=== PATIENT | female | born 1940 | race Caucasian/White ===

== ENCOUNTER → 2020-05-04 13:51 | Outpatient (BNVA) | payer OTHER, SELFPAY | PROVIDERS: PCP Internal Medicine; Referring Provider Internal Medicine; Visit Provider Hospitalist | DX: Z76.89 Persons encountering health services in other specified circumstances (principal) ==

== ENCOUNTER → 2020-11-02 14:56 | Outpatient (BNVA) | payer OTHER, SELFPAY | PROVIDERS: PCP Internal Medicine; Visit Provider Hospitalist ==

== ENCOUNTER → 2021-11-03 14:16 | Outpatient (BNVA) | payer OTHER, SELFPAY | PROVIDERS: PCP Internal Medicine; Visit Provider Hospitalist | DX: R91.1 Solitary pulmonary nodule (principal) ==

== ENCOUNTER 2023-08-17 14:52 | Outpatient (AMB) | payer OTHER, SELFPAY ==
--- NOTE | 2023-08-17 15:03 | MHC.OFFVIS ---
Intake Vital Signs 08/17/23 15:06 Height 5 ft 6 in Weight 151 lb BMI 24.4 Pulse 73 Pulse Source Pulse Oximeter Pulse Oximetry (%) 96 Oxygen Delivery Method Room Air Intake Visit Reasons: COPD Machine Shop Worker Required: No Allergies tetracycline Allergy (Severe, Verified 08/17/23 15:07) Hives Vioxx Allergy (Severe, Uncoded 08/17/23 15:07) Hives HPI HPI Comments History of Present Illness Details The patient is a 83-year-old woman known COPD and pulmonary nodule. She has had a a lot right upper lobe subsolid nodular density now for many years. It appears to be subsolid with a ground-glass area around it and subsolid nodular Center area. Is changes correct risks some degree. She did see thoracic surgeon the past did recommend surgery. She was reluctant. She did get a 2nd opinion with another thoracic surgery who will perform a PET scan. The PET scan only showed mild activity in the right upper lobe nodular density. Therefore, would there following the nodular density closely. The patient is here for a pulmonary follow up visit. Overall doing well. Using her Advair with very good eefect. She had tried other inhalers in the past all ready. +dyspnea on exertion, mild in severity. She has a CT chest scheduled for August 2019. 05/04/2020 the patient overall is doing very well. She continues on the current respiratory regimen. She states that her cough is overall better. Still intermittent and mild. She recently had her knee replacement. She is able to walk and is healing very well. She still feels a little swelling and some warmth when she touches it. She is scheduled to undergo repeat CT scan in August 2020. I which point she will follow up with thoracic surgery. Otherwise the patient is without any other complaints. 11/03/2021 the patient is here for pulmonary follow-up visit. The patient has been doing well from a respiratory status. Still complaining of neck aching headaches and she had a CT scan of neck and brain. It was found to be abnormal with what appeared to be meningioma. In the meantime also dealing with kidney stones. In regards to her pulmonary nodule she did recently have a CT scan of the chest that [facility] on 08/2021. It appears that the subsolid nodular density has not changed. She did have an appointment with thoracic surgery and they are pleased. She will have a repeat CT chest in 1 year. Her asthma has been stable. She was able to cut down on the advair to daily. 08/17/2023 the patient is here for a pulmonary follow-up visit. The patient continues to do well. She did have a repeat CT scan sometime in the fall 2022 and was followed closely by thoracic surgery at [facility]. She does have the large looking ground-glass nodular density with a subsolid component. Based on her imaging studies and does not appear to have changed significantly which is reassuring. She understands that is not so much the size but the transformation of the solid component. At this point the patient has been using her respiratory therapy with good effect. Has not required any prednisone. Has not required her rescue inhaler. although, now the adverse no longer be made so therefore she needs to change medications. We did go over the options. At this point will try Wixela as the best option for her. She will try if she has any issues with it or the delivery device sometimes can be little difficulty use she can always call and we can look for other a lternatives. She is having worsening headaches. Primarily in the right side. It concerns her because of her history meningioma. She is going to call her specialist for that in order to further evaluate that area. [facility] Medical History (Updated 11/02/20 @ 15:25 by Favian Garcia MD) Meningioma Pulmonary nodule Asthma Family History (Updated 05/04/20 @ 22:05 by Favian Garcia MD) Father No problems noted. Social History (Updated 11/03/21 @ 14:31 by GURPREET Walker) Patient Tobacco Use Status: Former Tobacco user Tobacco use type: Cigarette Years Smoked: 20 years Review of Systems Const Reports headache(s) and Denies night sweats ENT Denies change in voice, Reports headache(s), Denies lip swelling, Denies mouth pain, Reports nasal congestion, Reports nasal discharge and Denies tongue swelling Card Denies chest pain Resp Reports cough GI Denies abdominal pain Musc Denies no additional complaints Neuro Denies Neuro-related abnormal movements and Reports headache(s) Psych Denies no additional complaints Blade/Lymph Denies easy bleeding and Denies lymphadenopathy Aller/Immun Denies lip swelling and Denies tongue swelling Physical Exam Vital Signs: Last Vital Signs Pulse 73 02/23/24 15:06 Pulse Ox 96 08/17/23 15:06 Oxygen Delivery Method Room Air 08/17/23 15:06 BMI result Body Mass Index 24.4 Const General: alert Neck Neck: Yes normal visual inspection, Yes full ROM and Yes no lymphadenopathy Chest Chest palpation & inspection: normal inspection of the chest Resp Auscultation: diminished lung sounds Cardio Rate: regular rate Rhythm: regular rhythm Heart sounds: S1 normal heart sound present, S2 normal heart sound present and Murmur heart sound present systolic III/, with radiation to the carotids and at the right sternal border GI Palpation (GI): Soft to palpation and nontender Auscultation: normal bowel sounds Skin General skin exam: rashes and/or lesions noted Assessment & Plan Assessment & Plan (1) Pulmonary nodule: Code(s): R91.1 - Solitary pulmonary nodule (2) Asthma: Code(s): J45.909 - Unspecified asthma, uncomplicated Qualifiers: Asthma complication type: uncomplicated Asthma persistence: persistent Asthma severity: moderate Qualified Code(s): J45.40 - Moderate persistent asthma, uncomplicated (3) Meningioma: Code(s): D32.9 - Benign neoplasm of meninges, unspecified Plan Repeat CT chest Fall 2023 at [facility] [place] stop Advair 250 start Wixela VIKAS as needed F/U 12 months Medications: New fluticasone propion-salmeterol 250-50 mcg/dose (Wixela Inhub) 1 inh inhalation Q12H 30 days 60 ea 11RF Coding Level of Care Code Est Pt Level 4 (34410) Diagnoses Pulmonary nodule R91.1 Moderate persistent asthma without complication J45.40 Asthma complication type: uncomplicated Asthma persistence: persistent Asthma severity: moderate Meningioma D32.9 Time Spent (min) 18
[2023-08-17 15:06] VITALS: PULSE 73; O2SAT 96; BMI 24.4
== END 2023-08-17 15:29 | disposition home or self-care (01) ==
PROVIDERS: PCP Internal Medicine; Visit Provider Hospitalist
DX: R91.1 Solitary pulmonary nodule (principal); J45.40 Moderate persistent asthma, uncomplicated; D32.9 Benign neoplasm of meninges, unspecified
CPT/HCPCS: 99214

== ENCOUNTER → 2023-08-17 14:52 | Outpatient (BNVA) | payer OTHER, SELFPAY | PROVIDERS: PCP Internal Medicine; Visit Provider Hospitalist ==

== ENCOUNTER 2024-01-15 15:03 | Outpatient (AMB) | payer OTHER, SELFPAY ==
[2024-01-15 15:08] VITALS: BP 128/60; PULSE 67; O2SAT 98; BMI 24.0
--- NOTE | 2024-01-15 15:08 | A.OFFVIS_ITS ---
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 She has had a a lot right upper lobe subsolid nodular density now for many years. It appears to be subsolid with a ground-glass area around it and subsolid nodular Center area. Is changes correct risks some degree. She did see thoracic surgeon the past did recommend surgery. She was reluctant. She did get a 2nd opinion with another thoracic surgery who will perform a PET scan. The PET scan only showed mild activity in the right upper lobe nodular density. Therefore, would there following the nodular density closely. The patient is here for a pulmonary follow up visit. Overall doing well. Using her Advair with very good eefect. She had tried other inhalers in the past all ready. +dyspnea on exertion, mild in severity. She has a CT chest scheduled for August 2019. 05/04/2020 the patient overall is doing very well. She continues on the current respiratory regimen. She states that her cough is overall better. Still intermittent and mild. She recently had her knee replacement. She is able to walk and is healing very well. She still feels a little swelling and some warmth when she touches it. She is scheduled to undergo repeat CT scan in August 2020. I which point she will follow up with thoracic surgery. Otherwise the patient is without any other complaints. 11/03/2021 the patient is here for pulmonary follow-up visit. The patient has been doing well from a respiratory status. Still complaining of neck aching headaches and she had a CT scan of neck and brain. It was found to be abnormal with what appeared to be meningioma. In the meantime also dealing with kidney stones. In regards to her pulmonary nodule she did recently have a CT scan of the chest that [facility] on 08/2021. It appears that the subsolid nodular density has not changed. She did have an appointment with thoracic surgery and they are pleased. She will have a repeat CT chest in 1 year. Her asthma has been stable. She was able to cut down on the advair to daily. 08/17/2023 the patient is here for a pulmonary follow-up visit. The patient continues to do well. She did have a repeat CT scan sometime in the fall 2022 and was followed closely by thoracic surgery at [facility]. She does have the large looking ground-glass nodular density with a subsolid component. Based on her imaging studies and does not appear to have changed significantly which is reassuring. She understands that is not so much the size but the transformation of the solid component. At this point the patient has been using her respiratory therapy with good effect. Has not required any prednisone. Has not required her rescue inhaler. although, now the adverse no longer be made so therefore she needs to change medications. We did go over the options. At this point will try Wixela as the best option for her. She will try if she has any issues with it or the delivery device sometimes can be little difficulty use she can always call and we can look for other a lternatives. She is having worsening headaches. Primarily in the right side. It concerns her because of her history meningioma. She is going to call her specialist for that in order to further evaluate that area. 01/15/2024 the patient is here for a pulmonary follow-up visit. The patient overall has been doing well. She had been doing very well on the Advair Diskus. However, then he got discontinued. We had tried her on Breo but she did not feel well on Breo and therefore we sent her Wixela. She seems to be doing better with the Wixela although she does not like the mouth opening and she has a hard time putting her mouth around the small opening. Although seems like it is working better than the Breo. She is wondering about other alternatives. We did talk about the respiclick device. Although her insurance is not covering the AirDuo this time. This is a medication that she can get with a good Rx card. Still be more expensive than her cost of the Wixela. Seems like the Wixela is working well her respiratory exam is completely normal so therefore will continue that for now. If she has a hard time we can always consider the AirDuo on a later time. As far as her pulmonary nodules she has a subsolid pulmonary nodule and will have a CT scan of the chest in 04/13/2024. She will follow-up with the thoracic surgeon at that point. At least clinically she is feeling well and denies any constitutional symptoms which is reassuring. The patient will follow-up with me in the 2024. If she has any worsening issues or her CT scans concerning she knows see me prior to that. [facility] Medical History (Updated 11/02/20 @ 15:25 by Favian Garcia MD) Meningioma Pulmonary nodule Asthma Family History (Updated 05/04/20 @ 22:05 by Favian Garcia MD) Father No problems noted. Social History (Updated 11/03/21 @ 14:31 by Beba Rashid [facility] Patient Tobacco Use Status: Former Tobacco user Tobacco use type: Cigarette Years Smoked: 20 years Review of Systems Const Denies headache(s) and Denies night sweats ENT Denies change in voice, Denies headache(s), Denies lip swelling, Denies mouth pain, Reports nasal congestion, Reports nasal discharge and Denies tongue swelling Card Denies chest pain Resp Reports cough GI Denies abdominal pain Musc Denies no additional complaints Neuro Denies Neuro-related abnormal movements and Denies headache(s) Psych Denies no additional complaints Blade/Lymph Denies easy bleeding and Denies lymphadenopathy Aller/Immun Denies lip swelling and Denies tongue swelling Physical Exam Vital Signs: Last Vital Signs Pulse 67 01/15/24 15:08 BP 128/60 01/15/24 15:08 Pulse Ox 98 01/15/24 15:08 Oxygen Delivery Method Room Air 01/15/24 15:08 BMI result Body Mass Index 24.0 Const General: alert Neck Neck: Yes normal visual inspection, Yes full ROM and Yes no lymphadenopathy Chest Chest palpation & inspection: normal inspection of the chest Resp Effort & Inspection: normal respiratory effort Auscultation: clear to auscultation bilaterally Cardio Rate: regular rate Rhythm: regular rhythm Heart sounds: S1 normal heart sound present, S2 normal heart sound present and Murmur heart sound present systolic III/, with radiation to the carotids and at the right sternal border GI Palpation (GI): Soft to palpation and nontender Auscultation: normal bowel sounds Skin General skin exam: rashes and/or lesions noted Assessment & Plan Assessment & Plan (1) Pulmonary nodule: Code(s): R91.1 - Solitary pulmonary nodule Category: Medical (2) Asthma: Code(s): J45.909 - Unspecified asthma, uncomplicated Category: Medical Qualifiers: Asthma complication type: uncomplicated Asthma persistence: persistent Asthma severity: moderate Qualified Code(s): J45.40 - Moderate persistent asthma, uncomplicated (3) Meningioma: Code(s): D32.9 - Benign neoplasm of meninges, unspecified Category: Medical Plan Repeat CT chest Fall 2023 at [facility] continue Wixela VIKAS as needed F/U 8-10 months Medications: New fluticasone propion-salmeterol 250-50 mcg/dose (Wixela Inhub) 1 inh inhalation Q12H 3 ea 3RF 90 days Coding Level of Care Code Est Pt Level 4 (22730) Diagnoses Pulmonary nodule R91.1 Moderate persistent asthma without complication J45.40 Asthma complication type: uncomplicated Asthma persistence: persistent Asthma severity: moderate Meningioma D32.9 Time Spent (min) 15
== END 2024-01-15 15:28 | disposition home or self-care (01) ==
PROVIDERS: PCP Internal Medicine; Visit Provider Hospitalist
DX: R91.1 Solitary pulmonary nodule (principal); J45.40 Moderate persistent asthma, uncomplicated; D32.9 Benign neoplasm of meninges, unspecified
CPT/HCPCS: 99214

== ENCOUNTER → 2024-01-15 15:03 | Outpatient (BNVA) | payer OTHER, SELFPAY | PROVIDERS: PCP Internal Medicine; Visit Provider Hospitalist ==

== ENCOUNTER 2025-04-28 14:24 | Outpatient (AMB) | payer OTHER, SELFPAY ==
--- OUTSIDE RECORDS SUMMARY | 2024-07-07 09:00 | XMS_ITS ---
Author Organization [facility] Address [address] [place] [address] Care Team Providers Care Car Pilot Name Role Phone Darcie Goncalves Primary Care Provider Unavailabl Jer Roy Unavailable [phone] REASON FOR VISIT Seen Sooner Encounters Encounter Location Date Provider Diagnosis [address] [address] 07/07/2024 Jer Buenrostro Plan Of Treatment Next Appt Details Provider Name:Jer Buenrostro , 09/10/2025 01:30:00 PM, [address] [place] [address], [phone], Progress Notes * Malgorzata MONTESDOB:[birth year] (84 yo F)Acc No.[id number]:07/07/2024 Progress Notes Patient: Malgorzata ROBIN Provider: Jacqui Buenrostro DPM :1940 A ge:84 Y S ex:Female Date:07/07/2024 Address:[address] [place] [address] Pcp:Darcie Goncalves Subjective: * Chief Complaints: * 1 . Seen Sooner. * Medical History: Objective: * Vitals: Assessment: Plan: * Treatment: * Images: * The named appointment provid er may or may not be the originator of this progress note, and it is not deemed complete until electronically signed by the appointment provider. Sign off status: Pending * Provider: Jacqui Buenrostro DPM Date: 0 07/07/2024 Generated for Cliff castillo/Ethan on: 06/28/2024 05:27 PM EST
--- OUTSIDE RECORDS SUMMARY | 2024-07-09 08:30 | XMS_ITS ---
Author Organization [facility] Address [address] [place] [address] Care Team Providers Care Resource Recovery Engineer Name Role Phone Darcie Goncalves Primary Care Provider Unavailabl Jer Roy Unavailable [phone] Encounters Encounter Location Date Provider Diagnosis [address] [address] 07/09/2024 Jer Buenrostro Plan Of Treatment Next Appt Details Provider Name:Jer Buenrostro , 09/10/2025 01:30:00 PM, [address] [place] [address], [phone], Progress Notes * Malgorzata MONTESDOB:[birth year] (84 yo F)Acc No.[id number]:07/09/2024 Progress Note Patient: Martin Malgorzata GARCÍA Provider: Jacqui Buenrostro DPM :1940 A ge:84 Y S ex:Female Date:07/09/2024 Address:[address] [place], [place] [id number] Pcp:Darcie Goncalves Subjective: * Chief Complaints: * * Medical History: Objective: * Vitals: Assessment: Plan: * Treatment: * Images: * The named appointment provid er may or may not be the originator of this progress note, and it is not deemed complete until electronically signed by the appointment provider. Sign off status: Pending * Provider: Jacqui Buenrostro DPM Date: 0 07/09/2024 Generated for Cliff castillo/Katie/Libby on: 1 06/28/2024 05:26 PM EST
--- OUTSIDE RECORDS SUMMARY | 2025-01-02 04:18 | XMS_ITS | Continuity of Care Document ---
Author Organization [facility] Address [address] [place] [address] [address] [place] [address] Phone Care Team Providers Care Rotational Moulding Operator Name Role Phone Agatha BRYANT, Bradley Unavailable Unavailable Procedures Procedure Date Offic Cons New/estab Mod 40 Mi- CT & [place] Duplex Scan-extrem Veins; Comp- CT & [place] Advance Directives Directive Yes / No Effective Date File Name No Information Encounters Encounter Description Practice Location Reason(s) For Visit Diagnoses Date Provider Providers Copied on Encounter [facility], [address] [place] [address] [address] [place]vi [place], [id number], [place] tel:[phone] [facility] [place], [facility] No Information 5 Agatha Huerta. [address] , [address], [place], [address]. tel: [phone] Offic Cons New/estab Mod 40 Mi- CT & [place] [facility], [address] [place] [address] [address] S[address] [place], [id number], [place] tel:[phone] CVR - [facility] Varicose veins of bilateral lower extremities with other complicationsVa ricose veins of right lower extremity with inflammationVar icose veins of left lower extremity with inflammationPai n in right lower legEssential (primary) hypertensionPru ritus, unspecifiedDiso rder of pigmentation, unspecifiedPain in right legPain in left legPain in left lower legLocalized edema 5 Gerard BRYANT RVT, PAIGE Hooper. [address], [address], [facility] [place], [id number] , [place]. tel:[phone] [facility], [address] [facility] [address], [place], [id number], [place] tel:[phone] CVR - [place] - [place] Chronic venous hypertension (idiopathic) with other complications of bilateral lower extremity Leandro Gee MD, RVT, PAIGE Hooper. [address], [address], [facility] [place], [id number] , [place]. tel:[phone] Referring Provider: Rufus Gee MD, RVT, PAIGE, [address], [place], [address] . tel:[phone] Family History Family Member Type Diagnosis Age At Onset No Information Payers Payer name Insurance type Covered alliance party ID Authoriza [id number](s) [facility] [id number] Social History Type Description Quantity Date Captured Comments Sex Female Smoking Status No Information Chief Complaint And Reason For Visit No Information Reason For Referral Reason For Referral No Information Plan Of Treatment Date Type Action Status Goal Diet education completed Goal Tobacco cessation counseling completed Referral Ordered: Weight management: Referral to physician timeframe: 3 Months (related to Body mass index (BMI) 24.0-24.9, adult) ordered History Of Present Illness Encounter Date Complaint History Of Prese nt Illness No Information Functional Status Date Functional Assessmen t No Information Instructions Date Instruction Additional Infor mation Diet education Related to Body mass index (BMI) 24.0-24.9, adult Giving Encouragement to exercise Related to Body mass index (BMI) 24.0-24.9, adult Lifestyle education Related to B magda mass index (BMI) 24.0-24.9, adult Patient education booklet given Related to Varicose veins of bilateral lower extremities with other complications Pre and post instruc tions reviewed and provided Related to Varicose veins of bilateral lower extremities with other complications Assessments Type Assessment Date No Information Patient Care Teams Name Effective Dates (start - stop) Status Members No Information
--- OUTSIDE RECORDS SUMMARY | 2025-01-29 08:45 | XMS_ITS ---
Author Organization [facility] Address [address] [place] [address] Care Team Providers Care E Marketing Specialist Name Role Phone Darcie Goncalves Primary Care Provider Unavailabl Jer Roy Unavailable [phone] Encounters Encounter Location Date Provider Diagnosis [address] [address] 01/29/2025 Jer Buenrostro Plan Of Treatment Next Appt Details Provider Name:Jer Buenrostro , 09/10/2025 01:30:00 PM, [address] [place] [address], [phone], Progress Notes * Malgorzata MONTESDOB:[birth year] (84 yo F)Acc No.[id number]:01/29/2025 Progress Note Patient: Martin Malgorzata GARCÍA Provider: Jacqui Buenrostro DPM :1940 A ge:84 Y S ex:Female Date:01/29/2025 Address:[address] [place], [place] [id number] Pcp:Darcie Goncalves Subjective: * Chief Complaints: * * Medical History: Objective: * Vitals: Assessment: Plan: * Treatment: * Images: * The named appointment provid er may or may not be the originator of this progress note, and it is not deemed complete until electronically signed by the appointment provider. Sign off status: Pending * Provider: Jacqui Buenrostro DPM Date: 0 01/29/2025 Generated for Cliff castillo/Katie/Libby on: 1 06/28/2024 05:27 PM EST
[2025-04-28 14:27] VITALS: BP 136/62; PULSE 64; O2SAT 98; BMI 24.0
--- NOTE | 2025-04-28 14:27 | A.OFFVIS_ITS ---
Vital Signs 04/28/25 14:27 Height 5 ft 6 in Weight 148 lb 12.992 oz BMI 24.0 BP 136/62 Blood Pressure Location Lt brachial Position Sitting Pulse 64 Pulse Source Pulse Oximeter Pulse Oximetry (%) 98 Oxygen Delivery Method Room Air Intake Visit Reasons: copd Galley Stripper Required: No Accompanied by: Self / Same As Patient Allergies tetracycline Allergy (Severe, Verified 04/28/25 14:31) Hives latex Adverse Reaction (Severe, Verified 04/28/25 14:31) Rash Vioxx Allergy (Severe, Uncoded 01/15/24 15:11) Hives HPI Comments Details: The patient is a 84-year-old woman known COPD and pulmonary nodule. She has had a a lot right upper lobe subsolid nodular density now for many years. It appears to be subsolid with a ground-glass area around it and subsolid nodular Center area. Is changes correct risks some degree. She did see thoracic surgeon the past did recommend surgery. She was reluctant. She did get a 2nd opinion with another thoracic surgery who will perform a PET scan. The PET scan only showed mild activity in the right upper lobe nodular density. Therefore, would there following the nodular density closely. The patient is here for a pulmonary follow up visit. Overall doing well. Using her Advair with very good eefect. She had tried other inhalers in the past all ready. +dyspnea on exertion, mild in severity. She has a CT chest scheduled for August 2019. 05/04/2020 the patient overall is doing very well. She continues on the current respiratory regimen. She states that her cough is overall better. Still intermittent and mild. She recently had her knee replacement. She is able to walk and is healing very well. She still feels a little swelling and some warmth when she touches it. She is scheduled to undergo repeat CT scan in August 2020. I which point she will follow up with thoracic surgery. Otherwise the patient is without any other complaints. 11/03/2021 the patient is here for pulmonary follow-up visit. The patient has been doing well from a respiratory status. Still complaining of neck aching headaches and she had a CT scan of neck and brain. It was found to be abnormal with what appeared to be meningioma. In the meantime also dealing with kidney stones. In regards to her pulmonary nodule she did recently have a CT scan of the chest that [facility] on 08/2021. It appears that the subsolid nodular density has not changed. She did have an appointment with thoracic surgery and they are pleased. She will have a repeat CT chest in 1 year. Her asthma has been stable. She was able to cut down on the advair to daily. 08/17/2023 the patient is here for a pulmonary follow-up visit. The patient continues to do well. She did have a repeat CT scan sometime in the fall 2022 and was followed closely by thoracic surgery at [facility]. She does have the large looking ground-glass nodular density with a subsolid component. Based on her imaging studies and does not appear to have changed significantly which is reassuring. She understands that is not so much the size but the transformation of the solid component. At this point the patient has been using her respiratory therapy with good effect. Has not required any prednisone. Has not required her rescue inhaler. although, now the adverse no longer be made so therefore she needs to change medications. We did go over the options. At this point will try Wixela as the best option for her. She will try if she has any issues with it or the delivery device sometimes can be little difficulty use she can always call and we can look for other a lternatives. She is having worsening headaches. Primarily in the right side. It concerns her because of her history meningioma. She is going to call her specialist for that in order to further evaluate that area. 01/15/2024 the patient is here for a pulmonary follow-up visit. The patient overall has been doing well. She had been doing very well on the Advair Diskus. However, then he got discontinued. We had tried her on Breo but she did not feel well on Breo and therefore we sent her Wixela. She seems to be doing better with the Wixela although she does not like the mouth opening and she has a hard time putting her mouth around the small opening. Although seems like it is working better than the Breo. She is wondering about other alternatives. We did talk about the respiclick device. Although her insurance is not covering the AirDuo this time. This is a medication that she can get with a good Rx card. Still be more expensive than her cost of the Wixela. Seems like the Wixela is working well her respiratory exam is completely normal so therefore will continue that for now. If she has a hard time we can always consider the AirDuo on a later time. As far as her pulmonary nodules she has a subsolid pulmonary nodule and will have a CT scan of the chest in 04/13/2024. She will follow-up with the thoracic surgeon at that point. At least clinically she is feeling well and denies any constitutional symptoms which is reassuring. The patient will follow-up with me in the springtime 2024. If she has any worsening issues or her CT scans concerning she knows see me prior to that. 04/28/2025 the patient is here for pulmonary follow-up visit. Overall she is doing well. She continues on the Wixela although she did like Advair more. The Wixela seems to be affecting beneficial though. She will continue for now. She denies having to use her rescue inhaler. She has not gotten sick since we last spoke and has not required any prescription medications. Her last CT scan of the chest at [facility] was back in September 2024 and was stable. She will follow-up again in September of 2025 with thoracic surgery regarding her repeat CAT scan. But for now everything stable. She was diagnosed with a kidney stone and she did require I believe lithotripsy and now following closely with urology. That is seems to be stable at this time. She is now up-to-date with her vaccines. The patient will follow-up with me in a year. If she has any issues prior to this she can always call for an earlier assessment. [facility] Medical History (Updated 04/28/25 @ 14:47 by Favian Garcia MD) Murmur Meningioma Pulmonary nodule Asthma Family History (Updated 05/04/20 @ 22:05 by Favian Garcia MD) Father No problems noted. Social History Patient Tobacco Use Status: Former Tobacco user Tobacco use type: Cigarette Years Smoked: 20 years Review of Systems Const Denies headache(s) and Denies night sweats ENT Denies change in voice, Denies headache(s), Denies lip swelling, Denies mouth pain, Reports nasal congestion, Reports nasal discharge and Denies tongue swelling Card Denies chest pain Resp Reports cough GI Denies abdominal pain Musc Denies no additional complaints Neuro Denies Neuro-related abnormal movements and Denies headache(s) Psych Denies no additional complaints Blade/Lymph Denies easy bleeding and Denies lymphadenopathy Aller/Immun Denies lip swelling and Denies tongue swelling Physical Exam Vital Signs: Last Vital Signs Pulse 64 04/28/25 14:27 BP 136/62 04/28/25 14:27 Pulse Ox 98 04/28/25 14:27 Oxygen Delivery Method Room Air 04/28/25 14:27 BMI result Body Mass Index 24.0 Const General: alert Neck Neck: Yes normal visual inspection, Yes full ROM and Yes no lymphadenopathy Chest Chest palpation & inspection: normal inspection of the chest Resp Effort & Inspection: normal respiratory effort Auscultation: clear to auscultation bilaterally Cardio Rate: regular rate Rhythm: regular rhythm Heart sounds: S1 normal heart sound present, S2 normal heart sound present and Murmur heart sound present systolic III/, with radiation to the carotids and at the right sternal border GI Palpation (GI): Soft to palpation and nontender Auscultation: normal bowel sounds Skin General skin exam: rashes and/or lesions noted Assessment & Plan Assessment & Plan (1) Pulmonary nodule: Code(s): R91.1 - Solitary pulmonary nodule Category: Medical (2) Asthma: Code(s): J45.909 - Unspecified asthma, uncomplicated Category: Medical Qualifiers: Asthma complication type: uncomplicated Asthma persistence: persistent Asthma severity: moderate Qualified Code(s): J45.40 - Moderate persistent asthma, uncomplicated (3) Meningioma: Code(s): D32.9 - Benign neoplasm of meninges, unspecified Category: Medical (4) Murmur: Code(s): R01.1 - Cardiac murmur, unspecified Category: Medical Plan Repeat CT chest 09/2025 at [facility] consider ECHO continue Wixela VIKAS as needed F/U 10-12 months Coding Level of Care Code Est Pt Level 4 (54997) Complex EM visit Add On G2211 Diagnoses Pulmonary nodule R91.1 Moderate persistent asthma without complication J45.40 Asthma complication type: uncomplicated Asthma persistence: persistent Asthma severity: moderate Meningioma D32.9 Murmur R01.1 Time Spent (min) 17
--- OUTSIDE RECORDS SUMMARY | 2025-04-28 17:27 | XMS_ITS | Patient Health Record ---
[facility] Address [address] [place] [address] Care Team Providers Care Commercial Illustrator Name Role Phone Darcie Goncalves Primary Care Provider Jer Vidal Unavailable [phone] Rita Salazar Unavailable [phone] Allergies Allergen (clinical drug ingredient) Drug/Non Drug Allergy documented on EMR Reaction Allergy Type Onset Date Status rofecoxib vioxx (uncoded) Unknown Allergy Acti ve Adhesive rash Allergy Active Latex Latex rash Allergy Active Reason For Referral No Information Medications Medication SIG (Take, Route, Frequency, Duration) Notes Start Date End Date Status Custom Orthotics as directed metatarsalgia, bunion, hammertoes right foot Right foot offload painful 3rd metatarsal 04/16/2019 Not-Taking Tylenol 500 mg once or twice a day Not-Taking amLODIPine Besylate 5 MG 1 tablet Once a day Active Amoxicillin Not-Taki ng Colace Active Aspirin 81mg Active Famotidine 20 MG 1 tablet Orally Active Cosopt PF Active Wixela Inhub Active Lisinopril 40 MG 1 tablet Orally Active Evista 60 mg Not-Taking Advair Diskus Not-Ta anabell Immunizations Vaccine Route Administration Date Status Comme nts Influenza Unknown 04/01/2025 Administered Social History Tobacco Use: Social History Observation Description Date Details (start date - stop date) Never Smoker NA - NA Alcohol Screen Question Answer Notes Did you have a drink contain ing alcohol in the past year? Yes How often did you have 6 or more drinks on one occasion in the past year? Less than monthly (1 point) Points 1 Interpretation Negative Tobacco use other than smoking: Question Answer Notes Are you an other tobacco user? No Tobacco Control (Standard) Question Answer Notes Tobacco use: Nonsmoker Additional Findings: Tobacco non-user Current no nsmoker AUDIT-C (Standard) Question Answer Notes Did you have a drink containing alcohol in the p ast year? No Points 0 Interpretation Negative Problems Problem Type SNOMED Code ICD Code Onset Dates Problem Status W/U Status Risk Notes Problem Bilateral atherosclerosis of arteries of lower limbs (disorder) ([id number] ) Atherosclerosis of [place] artery of both lower extremities, with unspecified presence of clinical manifestation (I70.203) Active confirmed Q7(A), Q8(2B), Q9(1B,2 C) Vital Signs Heart Rate 57 /min 10/30/2024 Blood pressure diastolic 67 mm Hg 04/10/2025 Height 5ft 6in in 04/10/2025 Blood pressure systolic 130 mm Hg 04/10/2025 Weight 148 lbs 04/10/2025 BMI 23.89 kg/m2 04/10/2025 Procedures Procedure Date Ordered Date Performed Result Body Sit e 16473-YYRWDVD NAIL, 1-5 10/30/2024 N/A 69291-DAIF SKIN LESIONS, 2 TO 4 10/30/2024 N/A U2741-YHXFSWCX DYSTROPHIC NAILS ANY # 10/30/2024 N/A 34998-AOONKNG NAIL, 1-5 04/10/2025 N/A 72816-Ertavrew Plate 04/10/2025 N/A 57595-DUCH SKIN LESIONS, 2 TO 4 04/10/2025 N/A T5500-IQKHXMMP DYSTROPHIC NAILS ANY # 04/10/2025 N/A Encounters Encounter Location Date Provider Diagnosis [facility] [address] 10/30/2024 Jer Porter Tinea unguium B35.1 ; Atherosclerosis of [place] artery of both lower extremities, with unspecified presence of clinical manifestation I70.203 ; Pain in right toe(s) M79.674 and Pain in left toe(s) M79.675 [facility] [address] 04/10/2025 Rita Salazar Tinea unguium B35.1 ; Atherosclerosis of [place] artery of both lower extremities, with unspecified presence of clinical manifestation I70.203 ; Pain in right toe(s) M79.674 ; Pain in left toe(s) M79.675 and Ingrown nail L60.[address] [address] 07/04/2024 [facility] [address] [address] 09/18/2024 Jer Porter [facility] [address] [address] 10/30/2024 [facility] [address] [address] 01/27/2025 [facility] [address] [place] [phone] 04/09/2025 Jer Porter [address] [address] 04/28/2025 Jer Buenrostro Assessments Encounter Date Diagnosis (ICD Code) Assessment Notes Treatment Notes Treatment Clinical Notes Section Notes 10/30/2024 Tinea unguium (ICD-10 - B35.1) 10/30/2024 Atherosclerosis of [place] artery of both lower extremities, with unspecified presence of clinical manifestation (ICD-10 - I70.203) Q7(A), Q8(2B), Q9(1B,2C) 04/10/2025 Tinea unguium (ICD-10 - B35.1) 04/10/2025 Atherosclerosis of [place] artery of both lower extremities, with unspecified presence of clinical manifestation (ICD-10 - I70.203) Q7(A), Q8(2B), Q9(1B,2C) 04/10/2025 Pain in right toe(s) (ICD-10 - M79.674) 10/30/2024 Pain in right toe(s) (ICD-10 - M79.674) 04/10/2025 Pain in left toe(s) (ICD-10 - M79.675) 10/30/2024 Pain in left toe(s) (ICD-10 - M79.675) 04/10/2025 Ingrown nail (ICD-10 - L60.0) Plan Of Treatment Pending Test Test Name Order Date X ray : Foot, right 3V 04/16/2019 98834-JRIVXAD NAIL, 1-5 04/09/2024 72195-PHVTMEN NAIL, 1-5 10/30/2024 20138-BZVCYGE NAIL, 1-5 04/10/2025 93825-Wmgkyfnp Plate 04/09/2024 12905-Chhstbpj Plate 04/10/2025 07526-VBHJ SKIN LESIONS, 2 TO 4 04/09/20 24 75037-BDWA SKIN LESIONS, 2 TO 4 04/10/20 25 23252-DBCS SKIN LESIONS, 2 TO 4 10/31/19 25 M6652-GODRXIBZ DYSTROPHIC NAILS ANY # C9134-IZGFRGEA DYSTROPHIC NAILS ANY # U8941-KEXOXHYX DYSTROPHIC NAILS ANY # Next Appt Details Provider Name:Jer Buenrostro , 09/10/2025 01:30:00 PM, [address] [facility] [address], [place], [address], Insurance Providers Payer Name Payer Address Payer Phone Subscriber Number Group Number Insured Name Patient Relationship to Insured Coverage Start Date Coverage End Date [employer] ([facility]) [address] [place] [address] [id number] [facility] Malgorzata Montes Self - patient is the insured Medical (General) History Medical History History ICD Code Arthritis oa Back,hip,knee pain Broken bone Cancer Cataracts [place] Gout High Blood Pressure Lung Disease Reflus Sciatica Sinusitis Measles Mumps Chicken pox Headaches/Migraines Keloid/Thick Scar Kidney stones Numbness Poor circulation Reflux ( GERD) Sjogren syndrome Joint implants/screws Meningioma Surgical History Surgery Date(Month/Year) Mastectomy 5954-9579 Hysterectomy 2002 Cataract left and right 8796-6988 melanoma 2006 right knee replacement 2020 kidney stones 06/2024
== END 2025-04-28 14:52 | disposition home or self-care (01) ==
PROVIDERS: PCP Internal Medicine; Visit Provider Hospitalist
DX: R91.1 Solitary pulmonary nodule (principal); J45.40 Moderate persistent asthma, uncomplicated; D32.9 Benign neoplasm of meninges, unspecified; R01.1 Cardiac murmur, unspecified
CPT/HCPCS: 99214